=== PATIENT | male | born 1950 | race Caucasian/White ===

== ENCOUNTER 2016-04-07 11:38 | Day surgery (SDC) | payer MEDICARE, OTHER ==
[~2016-04-07 11:38] MED LIST: ALLO300T2 PO; AMLO10TA2 PO; ATOR40TA16 PO; CITA20TA4 PO; COMMODE 3-IN-11 MIS; DIAZ5TAB PO; DIOV160T6 PO; ENOX40P SQ; FLUT50SP EACH NARE; HYDR-3516 PO; HYDR12.57 PO; MAGN70CA PO; METO25TA3 PO; MISC-274; NIAS1000 PO; OMEGCAP PO; ONDA1TAB17 PO; PLAV75TA29 PO; PROT40TA PO; VITA100036 PO; ZANA4CAP PO; ZOLP10TA3 PO
[2016-04-07] MEDS ORDERED: DIOV160T6 PO (12:41)
[2016-04-07] MEDS ORDERED: ASPI1TAB69 PO (12:41)
[2016-04-07] MEDS ORDERED: INSULIN HUMAN REGULAR 1,000 UNITS/10 ML VIAL SQ PRN (13:00)
[2016-04-07] MEDS ORDERED: SODIUM CHLORID 0.9% 500 ML IV SCH (13:00)
[2016-04-07] MEDS ORDERED: METOPROLOL TARTRATE 25 MG TAB PO PRN (13:00)
[2016-04-07] MEDS ORDERED: LACTATED RINGER'S 1000 ML IV SCH (13:00)
--- NOTE | 2016-04-07 19:47 | CF ---
cc: CARLTON CEE M.D. DATE OF SURGERY: 04/07/2016 PROCEDURE: Transesophageal echocardiogram INDICATIONS: Recurrent TIA. History of PFO. CONSENT: Informed consent was obtained prior to the procedure. The risks of , bleeding, perforation, aspiration, foreseen and unforeseen complications reviewed. The patient fully appeared to understand the risks. PROCEDURAL STATEMENTS The patient was prepped and draped in the usual manner. The patient underwent anesthesia per the Anesthesia Department. A full LUIS was performed with bubble studies x4. FINDINGS There is a very small tunnel-like PFO noted with positive bubble studies times four suggesting a small PFO. The aortic valve was trileaflet. The mitral valve appeared to be normal. The tricuspid valve moved normally. LV function was normal. The aorta was visualized to 40 cm. CONCLUSION 1. Positive bubble studies x4 with agitated contrast solution suggesting a small PFO. 2. No significant mitral regurgitation, mild tricuspid regurgitation, normal LV function, normal function. Intact intraventricular septum and intra-apical septum. Carlton Cee MD, CP,[facility] /1:51 PM /7:34 PM AMALIA
--- NOTE | 2016-04-08 10:53 | EKG ---
Date Performed: 04/07/2016 Time Performed: 12:39:44 PTAGE: 65 years EKG: Sinus rhythm Normal ECG PREVIOUS TRACING : 11/20/2015 20.05 Compared to prior tracing no significant change DOCTOR: Hong Amos Interpretating Date/Time 04/08/2016 10:52:20
== END 2016-04-07 15:37 | disposition home or self-care (01) ==
LOC: HDOC 11:38 → HDIC 11:39 → HDOC 15:37
PROVIDERS: ATTEND Internal Medicine Cardiovascular Disease
DX: Q21.1 Atrial septal defect (principal); G45.9 Transient cerebral ischemic attack, unspecified; I10 Essential (primary) hypertension; E11.9 Type 2 diabetes mellitus without complications; J45.909 Unspecified asthma, uncomplicated; Z79.4 Long term (current) use of insulin
CPT/HCPCS: 93005; 93312; 93320; 93325

== ENCOUNTER → 2016-07-28 | Outpatient (CLI) | payer MEDICARE, OTHER ==
[~2016-07-28] MED LIST changes: +ASPI1TAB69 PO; -COMMODE 3-IN-11 MIS; -ENOX40P SQ; -HYDR-3516 PO; -MAGN70CA PO; -METO25TA3 PO; -MISC-274; -ZOLP10TA3 PO
[2016-07-28 07:13] LABS: AUTOMATED NEUTROPHIL # 3.8 TH/MM3 (1.8-7.7); BASOPHIL # 0.1 TH/MM3 (0-0.2); EOSINOPHIL # 0.1 TH/MM3 (0-0.4); EOSINOPHIL % 2.2 % (0.0-4.0); HEMATOCRIT 35.1 % (39.0-51.0); LYMPHOCYTE # 1.6 TH/MM3 (1.0-4.8); MEAN CELL VOLUME 73.9 FL (80.0-100.0); MEAN CORPUSCULAR HEMOGLOBIN 22.6 PG (27.0-34.0); MEAN CORPUSCULAR HGB CONC 30.5 % (32.0-36.0); MONO % 9.1 % (0.0-8.0); NEUT % 61.7 % (16.0-70.0); PLATELET COUNT 256 TH/MM3 (150-450); RED BLOOD COUNT 4.75 MIL/MM3 (4.50-5.90); RED CELL DISTRIBUTION WIDTH 17.2 % (11.6-17.2); WHITE BLOOD COUNT 6.1 TH/MM3 (4.0-11.0)
[2016-07-28 07:14] LABS: HEMO FLAGS AUTO DIFF
[2016-07-28 07:39] LABS: ALT (GPT) 34 U/L (12-78); ANION GAP 9 MEQ/L (5-15); AST (GOT) 20 U/L (15-37); BICARBONATE 25.4 MEQ/L (21.0-32.0); BLOOD UREA NITROGEN 20 MG/DL (7-18); CHLORIDE 103 MEQ/L (98-107); GLOMERULAR FILTRATION RATE 46 ML/MIN (>89); GLUCOSE,FASTING 112 MG/DL (74-99); POTASSIUM 3.9 MEQ/L (3.5-5.1); SODIUM (NA) 137 MEQ/L (136-145)
[2016-07-28 07:47] LABS: ALKALINE PHOSPHATASE 109 U/L (45-117); HDL CHOLESTEROL 50.1 MG/DL (40.0-60.0); LDL CHOLESTEROL 43 MG/DL (0-99); TOTAL BILIRUBIN ADULT 0.6 MG/DL (0.2-1.0)
[2016-07-28 07:59] LABS: OVALOCYTES 1+ (NORMAL); SCAN/DIFF AUTO DIFF CONFIRMED
[2016-07-28 08:03] LABS: HEMOGLOBIN A1a 1.2 %; HEMOGLOBIN A1b 2.2 %; HEMOGLOBIN Ao 82.7 %; HEMOGLOBIN LA1C 2.1 %; HEMOGLOBIN P3 4.3 %
== END ==
LOC: CLAB 06:42
PROVIDERS: ATTEND Radiology Radiation Oncology
DX: E83.42 Hypomagnesemia (principal); C61 Malignant neoplasm of prostate; N18.3 Chronic kidney disease, stage 3 (moderate)
CPT/HCPCS: 36415; 80053; 80061; 82652; 83036; 83735; 83970; 84153; 84443; 85025

== ENCOUNTER → 2016-09-23 | Outpatient (CLI) | payer MEDICARE, OTHER ==
[2016-09-23 07:04] LABS: AUTOMATED NEUTROPHIL # 3.4 TH/MM3 (1.8-7.7); BASOPHIL # 0.1 TH/MM3 (0-0.2); BASOPHIL % 1.1 % (0.0-2.0); EOSINOPHIL # 0.2 TH/MM3 (0-0.4); EOSINOPHIL % 3.6 % (0.0-4.0); HEMATOCRIT 37.3 % (39.0-51.0); HEMO FLAGS DIFF FINAL; LYMPH % 24.7 % (9.0-44.0); LYMPHOCYTE # 1.4 TH/MM3 (1.0-4.8); MEAN CELL VOLUME 76.7 FL (80.0-100.0); MEAN CORPUSCULAR HEMOGLOBIN 24.2 PG (27.0-34.0); MEAN CORPUSCULAR HGB CONC 31.6 % (32.0-36.0); MONO % 10.5 % (0.0-8.0); NEUT % 60.1 % (16.0-70.0); PLATELET COUNT 258 TH/MM3 (150-450); RED BLOOD COUNT 4.86 MIL/MM3 (4.50-5.90); RED CELL DISTRIBUTION WIDTH 23.8 % (11.6-17.2); RETIC % 2.5 % (0.4-3.0); REVIEW FLAG FINAL; WHITE BLOOD COUNT 5.6 TH/MM3 (4.0-11.0)
[2016-09-23 07:30] LABS: MAGNESIUM 2.1 MG/DL (1.5-2.5); TRANSFERRIN IRON PROFILE 321 MG/DL (200-360)
[2016-09-23 07:34] LABS: FERRITIN 18 NG/ML (26-388)
== END ==
LOC: CLAB 06:36
PROVIDERS: ATTEND Family Medicine
DX: D50.9 Iron deficiency anemia, unspecified (principal); E83.42 Hypomagnesemia; M10.9 Gout, unspecified
CPT/HCPCS: 36415; 82728; 83540; 83550; 83735; 84550; 85025; 85044

== ENCOUNTER → 2016-11-08 | Outpatient (CLI) | payer MEDICARE, OTHER ==
[2016-11-08 07:18] LABS: AUTOMATED NEUTROPHIL # 5.8 TH/MM3 (1.8-7.7); BASOPHIL # 0.1 TH/MM3 (0-0.2); BASOPHIL % 1.1 % (0.0-2.0); EOSINOPHIL # 0.3 TH/MM3 (0-0.4); EOSINOPHIL % 3.5 % (0.0-4.0); HEMATOCRIT 40.5 % (39.0-51.0); LYMPH % 23.2 % (9.0-44.0); LYMPHOCYTE # 2.1 TH/MM3 (1.0-4.8); MEAN CORPUSCULAR HEMOGLOBIN 27.6 PG (27.0-34.0); MEAN CORPUSCULAR HGB CONC 32.9 % (32.0-36.0); MONO % 7.2 % (0.0-8.0); PLATELET COUNT 235 TH/MM3 (150-450); RED BLOOD COUNT 4.82 MIL/MM3 (4.50-5.90); WHITE BLOOD COUNT 8.9 TH/MM3 (4.0-11.0)
[2016-11-08 07:23] LABS: HEMO FLAGS AUTO DIFF
[2016-11-08 07:39] LABS: FERRITIN 30 NG/ML (26-388); TRANSFERRIN IRON PROFILE 263 MG/DL (200-360)
[2016-11-08 09:33] LABS: SCAN/DIFF AUTO DIFF CONFIRMED
== END ==
LOC: CLAB 06:35
PROVIDERS: ATTEND Family Medicine
DX: D50.9 Iron deficiency anemia, unspecified (principal)
CPT/HCPCS: 36415; 82728; 83540; 83550; 85025

== ENCOUNTER → 2017-01-03 | Outpatient (CLI) | payer MEDICARE, OTHER ==
[2017-01-03 07:21] LABS: BASOPHIL # 0.1 TH/MM3 (0-0.2); BASOPHIL % 1.1 % (0.0-2.0); EOSINOPHIL # 0.2 TH/MM3 (0-0.4); EOSINOPHIL % 3.3 % (0.0-4.0); HEMATOCRIT 45.5 % (39.0-51.0); HEMO FLAGS DIFF FINAL; LYMPH % 26.9 % (9.0-44.0); LYMPHOCYTE # 1.4 TH/MM3 (1.0-4.8); MEAN CORPUSCULAR HEMOGLOBIN 28.7 PG (27.0-34.0); MEAN CORPUSCULAR HGB CONC 32.9 % (32.0-36.0); MONO % 11.3 % (0.0-8.0); NEUT % 57.4 % (16.0-70.0); PLATELET COUNT 223 TH/MM3 (150-450); RED BLOOD COUNT 5.23 MIL/MM3 (4.50-5.90); RED CELL DISTRIBUTION WIDTH 14.8 % (11.6-17.2); WHITE BLOOD COUNT 5.3 TH/MM3 (4.0-11.0)
[2017-01-03 07:47] LABS: ANION GAP 9 MEQ/L (5-15); BICARBONATE 24.3 MEQ/L (21.0-32.0); BLOOD UREA NITROGEN 22 MG/DL (7-18); CHLORIDE 103 MEQ/L (98-107); GLUCOSE,FASTING 165 MG/DL (74-99); POTASSIUM 3.9 MEQ/L (3.5-5.1); SODIUM (NA) 136 MEQ/L (136-145)
[2017-01-03 07:48] LABS: AST (GOT) 23 U/L (15-37); GLOMERULAR FILTRATION RATE 42 ML/MIN (>89); TOTAL BILIRUBIN ADULT 0.5 MG/DL (0.2-1.0)
[2017-01-03 07:51] LABS: MICRO ALBUMIN RANDOM URINE RAW 7.8 MG/L (0.0-30.0)
[2017-01-03 07:55] LABS: ALKALINE PHOSPHATASE 112 U/L (45-117); ALT (GPT) 54 U/L (12-78); FERRITIN 46 NG/ML (26-388)
[2017-01-03 10:19] LABS: HEMOGLOBIN A1a 1.2 %; HEMOGLOBIN A1b 1.2 %; HEMOGLOBIN Ao 79.2 %; HEMOGLOBIN F 1.5 %; HEMOGLOBIN LA1C 2.9 %; HEMOGLOBIN P3 4.9 %
== END ==
LOC: CLAB 06:44
PROVIDERS: ATTEND Family Medicine
DX: D50.0 Iron deficiency anemia secondary to blood loss (chronic) (principal); I10 Essential (primary) hypertension; E11.9 Type 2 diabetes mellitus without complications
CPT/HCPCS: 36415; 80053; 82043; 82728; 83036; 85025

== ENCOUNTER 2017-05-04 09:50 | Emergency (ER) | payer MEDICARE, OTHER ==
[~2017-05-04] VITALS: Ht 180.3 cm; Wt 104.5 kg
[~2017-05-04 09:50] MED LIST changes: +CHOL10008 PO; -ONDA1TAB17 PO; +ONDA8TAB7 PO; -VITA100036 PO
[2017-05-04 09:51] VITALS: BP 146/82; PULSE 110; RESP 18; TEMP 98.2; O2SAT 97
[2017-05-04] MEDS ORDERED: AMBI10TA PO (10:24)
[2017-05-04] MEDS ORDERED: ASPI81CH6 CHEW (10:24)
[2017-05-04] MEDS ORDERED: SITA50 PO (10:28)
[2017-05-04] MEDS ORDERED: SODIUM CHLOR 0.9% 1000 ML INJ 1,000 ML IV ONE ×2 (11:15→12:30)
[2017-05-04 11:34] LABS: AUTOMATED NEUTROPHIL # 3.6 TH/MM3 (1.8-7.7); BASOPHIL # 0.1 TH/MM3 (0-0.2); EOSINOPHIL # 0.1 TH/MM3 (0-0.4); EOSINOPHIL % 1.1 % (0.0-4.0); HEMATOCRIT 44.5 % (39.0-51.0); HEMOGLOBIN 14.4 GM/DL (13.0-17.0); LYMPH % 24.2 % (9.0-44.0); LYMPHOCYTE # 1.4 TH/MM3 (1.0-4.8); MEAN CELL VOLUME 90.6 FL (80.0-100.0); MEAN CORPUSCULAR HEMOGLOBIN 29.3 PG (27.0-34.0); MEAN CORPUSCULAR HGB CONC 32.4 % (32.0-36.0); MEAN PLATELET VOLUME 8.8 FL (7.0-11.0); MONO % 9.8 % (0.0-8.0); MONOCYTE # 0.6 TH/MM3 (0-0.9); NEUT % 63.9 % (16.0-70.0); PLATELET COUNT 277 TH/MM3 (150-450); RED BLOOD COUNT 4.91 MIL/MM3 (4.50-5.90); RED CELL DISTRIBUTION WIDTH 14.8 % (11.6-17.2); WHITE BLOOD COUNT 5.7 TH/MM3 (4.0-11.0)
[2017-05-04 11:55] LABS: ALBUMIN 3.2 GM/DL (3.4-5.0); BICARBONATE 20.4 MEQ/L (21.0-32.0); CALCIUM 9.3 MG/DL (8.5-10.1); CREATININE 1.61 MG/DL (0.60-1.30); DIRECT BILIRUBIN ADULT 0.1 MG/DL (0.0-0.2)
[2017-05-04 12:02] LABS: INDIRECT BILIRUBIN 0.5 MG/DL (0.0-0.8); TOTAL BILIRUBIN ADULT 0.6 MG/DL (0.2-1.0); TOTAL PROTEIN 6.9 GM/DL (6.4-8.2)
--- NOTE | 2017-05-04 12:16 | RADRPT ---
EXAM DATE/TIME: 05/04/2017 11:34 [place] COMPARISON: CHEST SINGLE AP, November 20, 2015, 20:26. INDICATIONS : Chest pain, Dizziness and weakness. MEDICAL HISTORY : Hypertension. Diabetes mellitus type II. Carcinoma, prostatic. TIA. CVA. SURGICAL HISTORY : Cardiac cath. ENCOUNTER: Initial ACUITY: 2 days PAIN SCORE: 6/10 LOCATION: Bilateral chest FINDINGS: A single view of the chest demonstrates the lungs to be symmetrically aerated without evidence of mas s, infiltrate or effusion. The cardiomediastinal contours are unremarkable. Stable degenerative workman ges in both shoulders.. CONCLUSION: The lungs are clear. Eric Raza MD on May 04, 2017 at 12:13 Board Certified Radiologist. This report was verified electronically.
[2017-05-04] MEDS ORDERED: INSULIN HUMAN REGULAR 1,000 UNITS/10 ML VIAL IV PUSH ONE (12:30)
[2017-05-04 12:48] LABS: BILIRUBIN, URINE NEG (NEG); BLOOD, URINE NEG (NEG); GLUCOSE,URINE 1000 mg/dL (NEG); KETONE, URINE 80 mg/dL (NEG); MUCUS URINE FEW /lpf (OCC); NITRITE,URINE NEG (NEG); URINE COLOR LIGHT-YELLOW (YELLW/STRAW); URINE LEUKOCYTE ESTERASE NEG (NEG)
[2017-05-04 14:07] VITALS: BP 96/67; PULSE 82; RESP 20; O2SAT 97
[2017-05-04 14:55] LABS: BICARBONATE 21.8 MEQ/L (21.0-32.0); CALCIUM 8.3 MG/DL (8.5-10.1); CREATININE 1.32 MG/DL (0.60-1.30)
--- NOTE | 2017-05-04 15:53 | PD ---
HPI Chief Complaint: Diabetic Time Seen by Provider: 10:44 Travel History International Travel<30 days: No Contact w/Intl Traveler<30days: No Traveled to known affect area: No History of Present Illness HPI Patient is a 66-year-old male who comes in due to high blood sugar. He has history of diabetes, but decided to stop taking his diabetes medication 3 months ago. He had blood work done and was called Tuesday because his sugar was found to be 700. He says that he started to take his Januvia at this time, and is noticed that his blood sugar has improved. His however, convinced him that he needed to come in to get checked out. He reports some nausea, increased thirst and increased urination. He has not had any chest pain or abdominal pain. Severity is moderate. PFSH Past Medical History Hx Anticoagulant Therapy: Yes (PLAVIX, ASA) Arthritis: Yes Asthma: No Anxiety: Yes Depression: Yes Heart Rhythm Problems: No Cancer: Yes (SKIN CANCER RIGHT SHOULDER AND SCALP 1997 REMOVED/PROSTATE 2014) Cardiac Catheterization: Yes Cardiovascular Problems: Yes (PATENT FOREAMEN OVALE, HEART CATH IN 1985) High Cholesterol: Yes Chest Pain: Yes Congestive Heart Failure: No COPD: No Cerebrovascular Accident: Yes Diabetes: Yes Patient Takes Glucophage: No (januvia) Diminished Hearing: Yes Endocrine: No Gastrointestinal Disorders: Yes (gi bleed with colonscopy 2015) GERD: Yes Genitourinary: Yes Hepatitis: No Hypertension: Yes Immune Disorder: No Kidney Stones: Yes Medical other: Yes (TIA) Musculoskeletal: Yes (arthritis all joints) Neurologic: Yes (tia x2, closed head injury 2015 , difficulty with balance, vertigo) Psychiatric: Yes Reproductive: No Respiratory: No Immunizations Current: Yes Migraines: Yes Radiation Therapy: Yes (PROSTATE CANCER) Seizures: No Sleep Apnea: No Thyroid Disease: No Triglycerides - High: Yes Ulcer: No Past Surgical History Abdominal Surgery: Yes (BILATERAL HERNIA REPAIR 1956, LAP FABIOLA 1997) AICD: No Body Medical Devices: current admission, left knee Cardiac Surgery: Yes (cardiac cath 1985, pfo occluder ([facility])) Cholecystectomy: Yes (1997) Ear Surgery: No Endocrine Surgery: No Eye Surgery: No Genitourinary Surgery: Yes (BASKET KIDNEY STONE REMOVAL 1998) Gynecologic Surgery: No Joint Replacement: Yes (BILAT. HIPS) Oral Surgery: Yes (T AND A 1954) Pacemaker: No Prostatectomy: Yes Thoracic Surgery: Yes (L PNEUMOTHORAX 1977) Tonsillectomy: Yes (1953) Other Surgery: Yes (1970 SEPTOPLASTY, R SHOULDER I&D FOR CALCIFICATION) Social History Alcohol Use: No Tobacco Use: No Substance Use: No Allergies-Medications (Allergen,Severity, Reaction): Coded Allergies: Iodinated Contrast- Oral and IV Dye (Verified Allergy, Severe, 05/04/17) NSAIDS (Non-Steroidal Anti-Inflamma (Verified Allergy, Severe, 05/04/17) diatrizoate meglumine (Unverified Allergy, Severe, "ANAPHYLAXIS", 11/09/16) diclofenac (Unverified Allergy, Severe, ACUTE RENAL FAILURE, 11/09/16) etodolac (Unverified Allergy, Severe, ACUTE RENAL FAILURE, 11/09/16) flurbiprofen (Unverified Allergy, Severe, ACUTE RENAL FAILURE, 11/09/16) gadobenic acid (Unverified Allergy, Severe, "ANAPHYLAXIS", 11/09/16) gadodiamide (Unverified Allergy, Severe, "ANAPHYLAXIS", 11/09/16) gadoteridol (Unverified Allergy, Severe, "ANAPHYLAXIS", 11/09/16) ibuprofen (Unverified Allergy, Severe, ACUTE RENAL FAILURE, 11/09/16) NO NSAIDS indomethacin (Unverified Allergy, Severe, ACUTE RENAL FAILURE, 11/09/16) iodixanol (Unverified Allergy, Severe, "ANAPHYLAXIS", 11/09/16) iohexol (Unverified Allergy, Severe, "ANAPHYLAXIS", 11/09/16) ketoprofen (Unverified Allergy, Severe, ACUTE RENAL FAILURE, 11/09/16) ketorolac (Unverified Allergy, Severe, ACUTE RENAL FAILURE, 11/09/16) naproxen (Unverified Allergy, Severe, ACUTE RENAL FAILURE, 11/09/16) oxaprozin (Unverified Allergy, Severe, ACUTE RENAL FAILURE, 11/09/16) promethazine (Unverified Allergy, Severe, ALTERED MENTAL STATUS, 11/09/16) ALLERGIC TO IV ONLY. SEVERE ANXIETY bee venom protein (honey bee) (Unverified Allergy, Mild, ITCHING/SWELLING , 11/09/16) *MDRO Multi-Drug Resistant Organism (Unverified Allergy, Unknown, 02/03/16) Reported Meds & Prescriptions Reported Meds & Active Scripts Active Reported Januvia (Sitagliptin Phosphate) 50 Mg Tab 50 Mg PO DAILY Aspirin Low Dose (Aspirin) 81 Mg Chew 162 Mg CHEW DAILY Ambien (Zolpidem Tartrate) 10 Mg Tab 10 Mg PO HS PRN Vitamin D3 (Cholecalciferol) 1,000 Unit Cap 1,000 Units PO DAILY Fluticasone Nasal [place] 50 Mcg/Act Naspr 50 Mcg EACH NARE BID 50 mcg/spray Zanaflex (Tizanidine HCl) 4 Mg Cap 4 Mg PO TID PRN [place]-3 Fish Oil/Vitamin (Fish Oil-Cholecalciferol) 1,000-1,000 Mg Cap 1 Cap PO BID Ondansetron (Ondansetron HCl) 8 Mg Tab 8 Mg PO TID PRN Diazepam 5 Mg Tab 5 Mg PO BID PRN Atorvastatin (Atorvastatin Calcium) 40 Mg Tab 40 Mg PO HS Plavix (Clopidogrel Bisulfate) 75 Mg Tab 75 Mg PO DAILY Restart when okay by orthopedic surgery Amlodipine (Amlodipine Besylate) 10 Mg Tab 10 Mg PO DAILY Protonix (Pantoprazole Sodium) 40 Mg Tab 40 Mg PO DAILY Diovan (Valsartan) 160 Mg Tab 160 Mg PO BID Allopurinol 300 Mg Tab 300 Mg PO DAILY Review of Systems Except as stated in HPI: all other systems reviewed are Neg General / Constitutional: No: Fever, Chills HENT: No: Headaches, Lightheadedness Cardiovascular: No: Chest Pain or Discomfort Respiratory: No: Shortness of Breath Gastrointestinal: Positive: Nausea, No: Vomiting, Abdominal Pain Genitourinary: Positive: Frequency Musculoskeletal: No: Myalgias Skin: No Rash, No Change in Pigmentation Endocrine: Positive: Polyuria, Polydipsia Physical Exam Narrative GENERAL: Awake and alert, in no acute distress. SKIN: Focused skin assessment warm/dry. No wounds or signs of infection. HEAD: Atraumatic. Normocephalic. EYES: Pupils equal and round. No scleral icterus. ENT: Mucous membranes pink and moist. NECK: Trachea midline. No JVD. CARDIOVASCULAR: Regular rate and rhythm. No murmur appreciated. RESPIRATORY: No accessory muscle use. Clear to auscultation. Breath sounds equal bilaterally. GASTROINTESTINAL: Abdomen soft, non-tender, nondistended. MUSCULOSKELETAL: No obvious deformities. No clubbing. No cyanosis. No edema. NEUROLOGICAL: Awake and alert. No obvious cranial nerve deficits. Motor grossly within normal limits. Normal speech. PSYCHIATRIC: Appropriate mood and affect; insight and judgment normal. Data Data Last Documented VS Vital Signs Date Time Temp Pulse Resp B/P (MAP) Pulse Ox O2 Delivery O2 Flow Rate FiO2 05/04/17 14:07 82 20 96/67 (77) 97 Room Air 05/04/17 09:51 98.2 Orders Orders Iv Access Insert/Monitor (05/04/17 11:01) Complete Blood Count With Diff (05/04/17 11:01) Basic Metabolic Panel (Bmp) (05/04/17 11:01) Hepatic Functional Panel (05/04/17 11:01) Beta Hydroxybutyrate (Acetone) (05/04/17 11:01) Urinalysis - C+S If Indicated (05/04/17 11:01) Sodium Chlor 0.9% 1000 Ml Inj (Ns 1000 M (05/04/17 11:15) Chest, Single Ap (05/04/17 ) Blood Gas Venous (Vbg) (05/04/17 12:24) Sodium Chlor 0.9% 1000 Ml Inj (Ns 1000 M (05/04/17 12:30) Insulin Human Regular Inj (Novolin R Inj (05/04/17 12:30) Basic Metabolic Panel (Bmp) (05/04/17 13:49) Labs Laboratory Tests Test 05/04/17 11:15 05/04/17 12:25 05/04/17 12:40 05/04/17 14:04 White Blood Count 5.7 TH/MM3 Red Blood Count 4.91 MIL/MM3 Hemoglobin 14.4 GM/DL Hematocrit 44.5 % Mean Corpuscular Volume 90.6 FL Mean Corpuscular Hemoglobin 29.3 PG Mean Corpuscular Hemoglobin Concent 32.4 % Red Cell Distribution Width 14.8 % Platelet Count 277 TH/MM3 Mean Platelet Volume 8.8 FL Neutrophils (%) (Auto) 63.9 % Lymphocytes (%) (Auto) 24.2 % Monocytes (%) (Auto) 9.8 % Eosinophils (%) (Auto) 1.1 % Basophils (%) (Auto) 1.0 % Neutrophils # (Auto) 3.6 TH/MM3 Lymphocytes # (Auto) 1.4 TH/MM3 Monocytes # (Auto) 0.6 TH/MM3 Eosinophils # (Auto) 0.1 TH/MM3 Basophils # (Auto) 0.1 TH/MM3 CBC Comment DIFF FINAL Differential Comment Blood Urea Nitrogen 26 MG/DL 23 MG/DL Creatinine 1.61 MG/DL 1.32 MG/DL Random Glucose 482 MG/DL 325 MG/DL Total Protein 6.9 GM/DL Albumin 3.2 GM/DL Calcium Level 9.3 MG/DL 8.3 MG/DL Alkaline Phosphatase 131 U/L Aspartate Amino Transf (AST/SGOT) 19 U/L Alanine Aminotransferase (ALT/SGPT) 24 U/L Total Bilirubin 0.6 MG/DL Direct Bilirubin 0.1 MG/DL Sodium Level 128 MEQ/L 133 MEQ/L Potassium Level 5.2 MEQ/L 4.1 MEQ/L Chloride Level 91 MEQ/L 99 MEQ/L Carbon Dioxide Level 20.4 MEQ/L 21.8 MEQ/L Anion Gap 17 MEQ/L 12 MEQ/L Estimat Glomerular Filtration Rate 43 ML/MIN 54 ML/MIN Indirect Bilirubin 0.5 MG/DL B-Hydroxybutyrate 6.93 MMOL/L Urine Color LIGHT-YELLOW Urine Turbidity CLEAR Urine pH 5.0 Urine Specific [place] 1.022 Urine Protein NEG mg/dL Urine Glucose (UA) 1000 mg/dL Urine Ketones 80 mg/dL Urine Occult Blood NEG Urine Nitrite NEG Urine Bilirubin NEG Urine Urobilinogen LESS THAN 2.0 MG/DL Urine Leukocyte Esterase NEG Urine RBC 1 /hpf Urine WBC LESS THAN 1 /hpf Urine Mucus FEW /lpf Microscopic Urinalysis Comment CULT NOT INDICATED Blood Gas Puncture Site CL Blood Gas Patient Temperature 98.6 Venous Blood pH 7.34 Venous Blood Partial Pressure CO2 37 mmHg Venous Blood Partial Pressure O2 27 mmHg Venous Blood HCO3 19 mmol/L Venous Blood Oxygen Saturation 57 % Venous Blood Oxygen Content 10.5 Vol % Venous Blood Base Excess -5.4 mmol/L Oxygen Delivery Device RA MDM Medical Decision Making Medical Screen Exam Complete: Yes Emergency Medical Condition: Yes Medical Record Reviewed: Yes Differential Diagnosis HHS versus DKA versus hyperglycemia versus dehydration versus electrolyte abnormality Narrative Course Patient is a 66-year-old male who comes in complaining of elevated blood sugar. Exam shows no acute abnormalities. IV established, labs sent. Labs show a blood sugar of 482. Creatinine is 1.61, anion gap is 17. Patient given IV fluids and 5 units of insulin. Repeat BMP shows a blood sugar of 325, normal anion gap of 12 and improved creatinine to 1.32. Patient advised he needs to drink plenty of water. Advised to continue his diabetes medication and follow-up with his primary care doctor. He and his are agreeable to this plan. Advised to return anytime for any worsening symptoms. Diagnosis Primary Impression: Hyperglycemia Patient Instructions: Diabetic Hyperglycemia (ED), General Instructions Additional Instructions: Drink plenty of water. Take your diabetes medication. Follow up with your doctor. Return to the ED as needed for any worsening symptoms. Disposition: 01 DISCHARGE HOME Condition: Stable Laila Garcia MD May 04, 2017 15:53
[2017-05-04 16:17] VITALS: BP 107/68
== END 2017-05-04 16:19 | disposition home or self-care (01) ==
LOC: NEPE 09:50
DX: E11.65 Type 2 diabetes mellitus with hyperglycemia (principal); E78.00 Pure hypercholesterolemia, unspecified; F32.9 Major depressive disorder, single episode, unspecified; M19.90 Unspecified osteoarthritis, unspecified site; I10 Essential (primary) hypertension; Z91.14 Patient's other noncompliance with medication regimen; Z85.828 Personal history of other malignant neoplasm of skin; Z86.73 Personal history of transient ischemic attack (TIA), and cerebral infarction without residual deficits
CPT/HCPCS: 71045; 80048; 80076; 81001; 82010; 82805; 85025; 96361; 96374; 99284; J1815; J7030

== ENCOUNTER 2017-07-20 17:15 | Inpatient (IN) | payer MEDICARE, OTHER ==
[~2017-07-20] VITALS: Ht 180.3 cm; Wt 105.9 kg
[2017-07-20 02:00] VITALS: BP 121/86; PULSE 89; RESP 18; TEMP 97.6; O2SAT 96
[~2017-07-20 17:15] MED LIST changes: +AMBI10TA PO; -ASPI1TAB69 PO; +ASPI81CH6 CHEW; -CITA20TA4 PO; -HYDR12.57 PO; -NIAS1000 PO; +SITA50 PO
[2017-07-20 17:44] VITALS: BP 87/54; PULSE 122; RESP 22; O2SAT 95
[2017-07-20 17:56] VITALS: BP 107/65; PULSE 110; RESP 17; O2SAT 95
[2017-07-20] MEDS ORDERED: HYDR12.56 PO (18:05)
[2017-07-20] MEDS ORDERED: LANTUS2P SQ (18:05)
[2017-07-20] MEDS ORDERED: TRIA0.022 TOPICAL (18:05)
[2017-07-20] MEDS ORDERED: NOVOINJ3 SQ (18:05)
[2017-07-20] MEDS ORDERED: CLON0.5T PO (18:05)
[2017-07-20] MEDS ORDERED: HYDR-3366 PO (18:05)
[2017-07-20] MEDS ORDERED: SODIUM CHLORID 0.9% 500 ML INJ 500 ML IV ONE (18:30)
[2017-07-20] MEDS ORDERED: MORPHINE SULFATE 4 MG/ML INJ IV PUSH ONE (18:30)
[2017-07-20] MEDS ORDERED: ONDANSETRON HCL 4 MG/2 ML VIAL IVP ONE (18:30)
--- NOTE | 2017-07-20 18:40 | PD ---
HPI Chief Complaint: GI Complaint Time Seen by Provider: 18:18 Travel History International Travel<30 days: No Contact w/Intl Traveler<30days: No Traveled to known affect area: No History of Present Illness HPI 66-year-old male that presents to the ED for evaluation of right lower quadrant pain that started today. Per patient the pain has been severe today. Per patient he woke him up. Per patient has been having dry heaves for about a week. He states that he still has his appendix. Per patient he has pain in his right lower quadrant and points to the right lower quadrant surgical pain. Per patient about 2 years ago he had kidney stones and sent to had to be taken out by urologist. Per patient he does not feel similar as this pain is more lower than the pain he had before. Per patient he did not took anything for this. Per patient the pain is 10 out of 10. He denies any urinary or bowel movement issues. No recent surgeries. Has no general surgeon. States having dry heaving but no actual vomiting. Has multiple allergies to different medications. Denies any chest pain or shortness of breath. No falls or injuries. He does have a history of gallbladder removal as well as bilateral inguinal hernia repairs when he was younger. PFSH Past Medical History Hx Anticoagulant Therapy: Yes (PLAVIX, ASA) Arthritis: Yes Asthma: No Anxiety: Yes Depression: Yes Heart Rhythm Problems: No Cancer: Yes (SKIN CANCER RIGHT SHOULDER AND SCALP 1997 REMOVED/PROSTATE 2014) Cardiac Catheterization: Yes Cardiovascular Problems: Yes (PATENT FOREAMEN OVALE, HEART CATH IN 1985) High Cholesterol: Yes Chest Pain: Yes Congestive Heart Failure: No COPD: No Cerebrovascular Accident: Yes Diabetes: Yes Patient Takes Glucophage: No Diminished Hearing: Yes Endocrine: No Gastrointestinal Disorders: Yes (gi bleed with colonscopy 2015) GERD: Yes Genitourinary: Yes Hepatitis: No Hypertension: Yes Immune Disorder: No Kidney Stones: Yes Medical other: Yes (TIA) Musculoskeletal: Yes (arthritis all joints) Neurologic: Yes (tia x2, closed head injury 2016 , difficulty with balance, vertigo) Psychiatric: Yes Reproductive: No Respiratory: No Immunizations Current: Yes Migraines: Yes Radiation Therapy: Yes (PROSTATE CANCER) Seizures: No Sleep Apnea: No Thyroid Disease: No Triglycerides - High: Yes Ulcer: No Past Surgical History Abdominal Surgery: Yes (BILATERAL HERNIA REPAIR 1956, LAP FABIOLA 1997) AICD: No Body Medical Devices: current admission, left knee Cardiac Surgery: Yes (cardiac cath 1985, pfo occluder ([facility])) Cholecystectomy: Yes (1997) Ear Surgery: No Endocrine Surgery: No Eye Surgery: No Genitourinary Surgery: Yes (BASKET KIDNEY STONE REMOVAL 1998) Gynecologic Surgery: No Joint Replacement: Yes (BILAT. HIPS) Oral Surgery: Yes (T AND A 1954) Pacemaker: No Prostatectomy: Yes Thoracic Surgery: Yes (L PNEUMOTHORAX 1977) Tonsillectomy: Yes (1953) Other Surgery: Yes (1970 SEPTOPLASTY, R SHOULDER I&D FOR CALCIFICATION) Social History Alcohol Use: No Tobacco Use: No Substance Use: No Allergies-Medications (Allergen,Severity, Reaction): Coded Allergies: Iodinated Contrast- Oral and IV Dye (Verified Allergy, Severe, 07/20/17) NSAIDS (Non-Steroidal Anti-Inflamma (Verified Allergy, Severe, 07/20/17) diatrizoate meglumine (Unverified Allergy, Severe, "ANAPHYLAXIS", 07/20/17) diclofenac (Unverified Allergy, Severe, ACUTE RENAL FAILURE, 07/20/17) etodolac (Unverified Allergy, Severe, ACUTE RENAL FAILURE, 07/20/17) flurbiprofen (Unverified Allergy, Severe, ACUTE RENAL FAILURE, 07/20/17) gadobenic acid (Unverified Allergy, Severe, "ANAPHYLAXIS", 07/20/17) gadodiamide (Unverified Allergy, Severe, "ANAPHYLAXIS", 07/20/17) gadoteridol (Unverified Allergy, Severe, "ANAPHYLAXIS", 07/20/17) ibuprofen (Unverified Allergy, Severe, ACUTE RENAL FAILURE, 07/20/17) NO NSAIDS indomethacin (Unverified Allergy, Severe, ACUTE RENAL FAILURE, 07/20/17) iodixanol (Unverified Allergy, Severe, "ANAPHYLAXIS", 07/20/17) iohexol (Unverified Allergy, Severe, "ANAPHYLAXIS", 07/20/17) ketoprofen (Unverified Allergy, Severe, ACUTE RENAL FAILURE, 07/20/17) ketorolac (Unverified Allergy, Severe, ACUTE RENAL FAILURE, 07/20/17) naproxen (Unverified Allergy, Severe, ACUTE RENAL FAILURE, 07/20/17) oxaprozin (Unverified Allergy, Severe, ACUTE RENAL FAILURE, 07/20/17) promethazine (Unverified Allergy, Severe, ALTERED MENTAL STATUS, 07/20/17) ALLERGIC TO IV ONLY. SEVERE ANXIETY bee venom protein (honey bee) (Unverified Allergy, Mild, ITCHING/SWELLING , 07/20/17) *MDRO Multi-Drug Resistant Organism (Unverified Allergy, Unknown, 07/20/17) Reported Meds & Prescriptions Reported Meds & Active Scripts Active Reported Triamcinolone Topical 0.025 % Oint 1 Applic TOPICAL BID [place] (Hydrocodone-Acetaminophen) 10-325 Mg Tab 1 Tab PO TID PRN Clonazepam 0.5 Mg Tab 0.5 Mg PO TID Hydrochlorothiazide 12.5 Mg Tab 12.5 Mg PO DAILY Lantus Inj (Insulin Glargine) 1,000 Unit/10 Ml Vial 10 Units SQ HS Novolog Flexpen Inj (Insulin Aspart) 300 Unit/3 Ml Pen 1 Units SQ Aspirin Low Dose (Aspirin) 81 Mg Chew 162 Mg CHEW DAILY Ambien (Zolpidem Tartrate) 10 Mg Tab 10 Mg PO HS PRN Vitamin D3 (Cholecalciferol) 1,000 Unit Cap 1,000 Units PO DAILY Fluticasone Nasal [place] 50 Mcg/Act Naspr 50 Mcg EACH NARE BID 50 mcg/spray Zanaflex (Tizanidine HCl) 4 Mg Cap 4 Mg PO TID PRN [place]-3 Fish Oil/Vitamin (Fish Oil-Cholecalciferol) 1,000-1,000 Mg Cap 1 Cap PO BID Ondansetron (Ondansetron HCl) 8 Mg Tab 8 Mg PO TID PRN Atorvastatin (Atorvastatin Calcium) 40 Mg Tab 40 Mg PO HS Plavix (Clopidogrel Bisulfate) 75 Mg Tab 75 Mg PO DAILY Restart when okay by orthopedic surgery Amlodipine (Amlodipine Besylate) 10 Mg Tab 10 Mg PO DAILY Protonix (Pantoprazole Sodium) 40 Mg Tab 40 Mg PO DAILY Diovan (Valsartan) 160 Mg Tab 160 Mg PO BID Allopurinol 300 Mg Tab 300 Mg PO DAILY Review of Systems Except as stated in HPI: all other systems reviewed are Neg Physical Exam Narrative GENERAL: SKIN: Warm and dry. HEAD: Atraumatic. Normocephalic. EYES: Pupils equal and round. No scleral icterus. No injection or drainage. ENT: No nasal bleeding or discharge. Mucous membranes pink and moist. Tongue is midline. No uvula deviation. NECK: Trachea midline. No JVD. CARDIOVASCULAR: Regular rate and rhythm. No murmurs, S3, S4. RESPIRATORY: No accessory muscle use. Clear to auscultation. Breath sounds equal bilaterally. GASTROINTESTINAL: Abdomen soft, non-tender, nondistended. Hepatic and splenic margins not palpable. MUSCULOSKELETAL: Extremities without clubbing, cyanosis, or edema. No obvious deformities. Full range of motion of the upper and lower extremities bilaterally. 2+ pulses bilaterally. NEUROLOGICAL: Awake and alert. No obvious cranial nerve deficits. Motor grossly within normal limits. Five out of 5 muscle strength in the arms and legs. Normal speech. PSYCHIATRIC: Appropriate mood and affect; insight and judgment normal. Data Data Last Documented VS Vital Signs Date Time Temp Pulse Resp B/P (MAP) Pulse Ox O2 Delivery O2 Flow Rate FiO2 07/20/17 19:13 105 20 112/66 (81) 92 Room Air Orders Orders Complete Blood Count With Diff (07/20/17 18:26) Comprehensive Metabolic Panel (07/20/17 18:26) Lipase (07/20/17 18:26) Lactic Acid (07/20/17 18:26) Prothrombin Time / Inr (Pt) (07/20/17 18:) Act Partial Throm Time (Ptt) (07/20/17 18:) Urinalysis - C+S If Indicated (07/20/17 18:26) Ct Abd/Pel W/O Iv Contrast (07/20/17 18:26) Iv Access Insert/Monitor (07/20/17 18:26) Ecg Monitoring (07/20/17 18:26) Oximetry (07/20/17 18:26) NPO (07/20/17 18:26) Morphine Inj (Morphine Inj) (07/20/17 18:30) Ondansetron Inj (Zofran Inj) (07/20/17 18:30) Sodium Chlorid 0.9% 500 Ml Inj (Ns 500 M (07/20/17 18:30) Electrocardiogram (07/20/17 ) Insulin Human Regular Inj (Novolin R Inj (07/20/17 19:15) C-Reactive Protein (Crp) (07/20/17 18:26) Ciprofloxacin 400 Mg Premix (Cipro 400 M (07/20/17 20:15) Metronidazole 500 Mg Inj (Flagyl 500 Mg (07/20/17 20:15) Admit Order (Ed Use Only) (07/20/17 20:40) Labs Laboratory Tests Test 07/20/17 18:55 07/20/17 19:03 Blood Urea Nitrogen 43 MG/DL Creatinine 2.35 MG/DL Random Glucose 640 MG/DL Total Protein 8.0 GM/DL Albumin 3.8 GM/DL Calcium Level 9.9 MG/DL Alkaline Phosphatase 124 U/L Aspartate Amino Transf (AST/SGOT) 15 U/L Alanine Aminotransferase (ALT/SGPT) 25 U/L Total Bilirubin 0.8 MG/DL Sodium Level 125 MEQ/L Potassium Level 4.9 MEQ/L Chloride Level 90 MEQ/L Carbon Dioxide Level 21.2 MEQ/L Anion Gap 14 MEQ/L Estimat Glomerular Filtration Rate 28 ML/MIN C-Reactive Protein 1.60 MG/DL Lipase 157 U/L White Blood Count 10.2 TH/MM3 Red Blood Count 5.48 MIL/MM3 Hemoglobin 15.6 GM/DL Hematocrit 47.8 % Mean Corpuscular Volume 87.1 FL Mean Corpuscular Hemoglobin 28.4 PG Mean Corpuscular Hemoglobin Concent 32.6 % Red Cell Distribution Width 14.7 % Platelet Count 301 TH/MM3 Mean Platelet Volume 8.5 FL Neutrophils (%) (Auto) 78.0 % Lymphocytes (%) (Auto) 13.3 % Monocytes (%) (Auto) 6.9 % Eosinophils (%) (Auto) 1.1 % Basophils (%) (Auto) 0.7 % Neutrophils # (Auto) 8.0 TH/MM3 Lymphocytes # (Auto) 1.4 TH/MM3 Monocytes # (Auto) 0.7 TH/MM3 Eosinophils # (Auto) 0.1 TH/MM3 Basophils # (Auto) 0.1 TH/MM3 CBC Comment DIFF FINAL Differential Comment Prothrombin Time 10.2 SEC Prothromb Time International Ratio 1.0 RATIO Activated Partial Thromboplast Time 24.1 SEC Lactic Acid Level 2.0 mmol/L MDM Medical Decision Making Medical Screen Exam Complete: Yes Emergency Medical Condition: Yes Medical Record Reviewed: Yes Interpretation(s) CBC & BMP Diagram 07/20/17 18:55 Total Protein 8.0, Albumin 3.8, Calcium Level 9.9, Alkaline Phosphatase 124 H, Aspartate Amino Transf (AST/SGOT) 15, Alanine Aminotransferase (ALT/SGPT) 25, Total Bilirubin 0.8 07/20/17 19:03 Last Impressions Abdomen/Pelvis CT 07/20/17 1826 Signed Impressions: Service Date/Time: Thursday, July 20, 2017 19:39 - CONCLUSION: 1. Mild, uncomplicated acute diverticulitis of the mid to distal sigmoid colon. 2. Normal appendix. Diego Arceo MD Differential Diagnosis Abdominal pain versus appendicitis versus kidney stone versus acute abdomen versus gastroenteritis Narrative Course 66-year-old male that presents to the ED for evaluation of right lower quadrant pain. Patient was properly examined and was found to have signs and symptoms deafly concerning for appendicitis versus kidney stone. Labs and imaging order. Patient was given IV pain medications. Labs and imaging showed diverticulitis as well as acute kidney injury. Case discussed with the patient who is in agreement with plan. Patient will be admitted for further evaluation of the kidney injury. Likely from the hydration. Patient will start IV antibiotics. Case discussed with Dr. Carson who agrees to admission. Diagnosis Primary Impression: Acute kidney injury Additional Impressions: Diverticulitis Diabetes Qualified Codes: E11.9 - Type 2 diabetes mellitus without complications; Z79.4 - french folder (current) use of insulin Admitting Information Admitting Physician Requests: Admit Stan Yang Jul 20, 2017 18:40
[2017-07-20 19:13] VITALS: BP 112/66; PULSE 105; RESP 20; O2SAT 92
[2017-07-20] MEDS ORDERED: INSULIN HUMAN REGULAR 1,000 UNITS/10 ML VIAL SQ ONE ×2 (19:15→21:15)
[2017-07-20 19:37] LABS: BASOPHIL # 0.1 TH/MM3 (0-0.2); BASOPHIL % 0.7 % (0.0-2.0); EOSINOPHIL # 0.1 TH/MM3 (0-0.4); EOSINOPHIL % 1.1 % (0.0-4.0); HEMATOCRIT 47.8 % (39.0-51.0); HEMOGLOBIN 15.6 GM/DL (13.0-17.0); LYMPH % 13.3 % (9.0-44.0); LYMPHOCYTE # 1.4 TH/MM3 (1.0-4.8); MEAN CELL VOLUME 87.1 FL (80.0-100.0); MEAN CORPUSCULAR HEMOGLOBIN 28.4 PG (27.0-34.0); MEAN CORPUSCULAR HGB CONC 32.6 % (32.0-36.0); MEAN PLATELET VOLUME 8.5 FL (7.0-11.0); MONO % 6.9 % (0.0-8.0); MONOCYTE # 0.7 TH/MM3 (0-0.9); PLATELET COUNT 301 TH/MM3 (150-450); RED BLOOD COUNT 5.48 MIL/MM3 (4.50-5.90); RED CELL DISTRIBUTION WIDTH 14.7 % (11.6-17.2); WHITE BLOOD COUNT 10.2 TH/MM3 (4.0-11.0)
[2017-07-20 19:44] LABS: PROTHROMBIN TIME - PATIENT 10.2 SEC (9.8-11.6)
[2017-07-20 19:53] LABS: ALBUMIN 3.8 GM/DL (3.4-5.0); ALT (GPT) 25 U/L (12-78); AST (GOT) 15 U/L (15-37); BICARBONATE 21.2 MEQ/L (21.0-32.0); BLOOD UREA NITROGEN 43 MG/DL (7-18); CALCIUM 9.9 MG/DL (8.5-10.1); CHLORIDE 90 MEQ/L (98-107); CREATININE 2.35 MG/DL (0.60-1.30); GLOMERULAR FILTRATION RATE 28 ML/MIN (>89); SODIUM (NA) 125 MEQ/L (136-145)
--- NOTE | 2017-07-20 20:00 | RADRPT ---
EXAM DATE/TIME: 07/20/2017 19:39 [facility] COMPARISON: CT ABDOMEN & PELVIS W/O CONTRAST, October 06, 2015, 22:43. INDICATIONS : Right lower quadrant pain. ORAL CONTRAST: No oral contrast ingested. RADIATION DOSE: 16.65 CTDIvol (mGy) MEDICAL HISTORY : Stroke. Cardiovascular disease Carcinoma, prostate.Renal stones. SURGICAL HISTORY : Prostatectomy. Cholecystectomy. ENCOUNTER: Initial ACUITY: 1 day PAIN SCALE: 5/10 LOCATION: Right lower quadrant TECHNIQUE: Volumetric scanning of the abdomen and pelvis was performed. Using automated exposure control and ad justment of the mA and/or kV according to patient size, radiation dose was kept as low as reasonably achievable to obtain optimal diagnostic quality images. DICOM format image data is available electro nically for review and comparison. FINDINGS: LOWER LUNGS: The visualized lower lungs are clear. LIVER: Homogeneous density without lesion. There is no dilation of the biliary tree. Previous cholecystecto my. SPLEEN: Normal size without lesion. PANCREAS: Within normal limits. KIDNEYS: Normal in size and shape. There is no mass, stone, or hydronephrosis. ADRENAL GLANDS: Within normal limits. VASCULAR: There is no aortic aneurysm. BOWEL/MESENTERY: There is diverticulosis of the left side of the colon. Mild inflammatory changes are seen of the mid to distal sigmoid colon in the central pelvic cavity. No abscess, perforation or obstruction demonstr ated. The rest of the gastrointestinal tract has a normal noncontrast appearance. The appendix is wel l-visualized and normal. ABDOMINAL WALL: Within normal limits. RETROPERITONEUM: There is no lymphadenopathy. BLADDER: No wall thickening or mass. REPRODUCTIVE: Within normal limits. INGUINAL: There is no lymphadenopathy or hernia. MUSCULOSKELETAL: No acute bony abnormality demonstrated. Patient has bilateral bipolar hip arthroplasties with associa royer metallic streak artifact. CONCLUSION: 1. Mild, uncomplicated acute diverticulitis of the mid to distal sigmoid colon. 2. Normal appendix. Diego Arceo MD on July 20, 2017 at 19:55 Board Certified Radiologist. This report was verified electronically.
[2017-07-20] MEDS ORDERED: CIPROFLOXACIN 400 MG PREMIX 200 ML IV ONE (20:15)
[2017-07-20] MEDS ORDERED: metroNIDAZOLE 500 MG INJ 100 ML IV ONE (20:15)
[2017-07-20 20:22] LABS: ALKALINE PHOSPHATASE 124 U/L (45-117); TOTAL BILIRUBIN ADULT 0.8 MG/DL (0.2-1.0)
[2017-07-20 20:25] LABS: GLUCOSE,RANDOM 640 MG/DL (74-106)
[2017-07-20 21:13] VITALS: BP 101/69; PULSE 100; RESP 17; TEMP 98.4; O2SAT 95
[2017-07-20] MEDS ORDERED: SODIUM CHLOR 0.9% 1000 ML INJ 1,000 ML IV ONE (21:15)
[2017-07-20] MEDS ORDERED: MORPHINE SULFATE 2 MG/ML SYRINGE IV PUSH ONE (21:15)
[2017-07-20] MEDS ORDERED: ACETAMINOPHEN 325 MG TAB PO PRN (22:00)
[2017-07-20] MEDS ORDERED: ONDANSETRON HCL 4 MG/2 ML VIAL IVP PRN (22:00)
[2017-07-20] MEDS ORDERED: SENNOSIDES 8.6 MG TAB PO PRN (22:00)
[2017-07-20] MEDS ORDERED: BISACODYL 10 MG SUPP RECTAL PRN (22:00)
[2017-07-20] MEDS ORDERED: ZOLPIDEM TARTRATE 10 MG TAB PO PRN (22:00)
[2017-07-20] MEDS ORDERED: GLUCAGON 1 MG/ML VIAL OTHER PRN (22:00)
[2017-07-20] MEDS ORDERED: MAGNESIUM HYDROXIDE SUSP 30 ML CUP PO PRN (22:00)
[2017-07-20] MEDS ORDERED: NALOXONE HCL 0.4 MG/ML AMP IV PUSH PRN (22:00)
[2017-07-20] MEDS ORDERED: LACTULOSE SYRUP 20 GM/30 ML CUP PO PRN (22:00)
[2017-07-20] MEDS ORDERED: DEXTROSE 50% IN WATER 50 ML VIAL(D50) IV PUSH PRN (22:00)
[2017-07-20] MEDS ORDERED: SODIUM CHLORIDE 0.9% FLUSH 10 ML FLUSH IV FLUSH PRN (22:00)
--- NOTE | 2017-07-20 22:08 | HHI.HP ---
HPI Service [facility] Primary Care Physician Jai Tafoya MD Admission Diagnosis acute kidney injury, acute diverticulitis, hyperglycemia Diagnoses: Travel History International Travel<30 Days: No Contact w/Intl Traveler <30 Da: No Traveled to Known Affected Are: No History of Present Illness 66-year-old male with a past medical history significant for coronary disease, chronic kidney disease, hypertension, vertigo and diabetes mellitus presents to the emergency department for evaluation of abdominal pain. The patient reports that he has been having nausea with dry heaves for approximately 1 week. He reports decreased p.o. intake secondary to this. He awoke this morning with right lower quadrant abdominal pain that he felt was concerning for appendicitis. He denies any chest pain or shortness of breath. No diarrhea. No emesis. No fatigue/weakness. No lateralizing signs/symptoms. No fevers/ chills. Review of Systems Except as stated in HPI: all other systems reviewed are Neg Past Family Social History Past Medical History Coronary disease Chronic kidney disease Hypertension Vertigo Diabetes mellitus Past Surgical History Bilateral hip replacement Left knee replacement Reported Medications Reported Meds & Active Scripts Active Reported Triamcinolone Topical 0.025 % Oint 1 Applic TOPICAL BID [place] (Hydrocodone-Acetaminophen) 10-325 Mg Tab 1 Tab PO TID PRN Clonazepam 0.5 Mg Tab 0.5 Mg PO TID Hydrochlorothiazide 12.5 Mg Tab 12.5 Mg PO DAILY Lantus Inj (Insulin Glargine) 1,000 Unit/10 Ml Vial 10 Units SQ HS Novolog Flexpen Inj (Insulin Aspart) 300 Unit/3 Ml Pen 1 Units SQ Aspirin Low Dose (Aspirin) 81 Mg Chew 162 Mg CHEW DAILY Ambien (Zolpidem Tartrate) 10 Mg Tab 10 Mg PO HS PRN Vitamin D3 (Cholecalciferol) 1,000 Unit Cap 1,000 Units PO DAILY Fluticasone Nasal [place] 50 Mcg/Act Naspr 50 Mcg EACH NARE BID 50 mcg/spray Zanaflex (Tizanidine HCl) 4 Mg Cap 4 Mg PO TID PRN [place]-3 Fish Oil/Vitamin (Fish Oil-Cholecalciferol) 1,000-1,000 Mg Cap 1 Cap PO BID Ondansetron (Ondansetron HCl) 8 Mg Tab 8 Mg PO TID PRN Atorvastatin (Atorvastatin Calcium) 40 Mg Tab 40 Mg PO HS Plavix (Clopidogrel Bisulfate) 75 Mg Tab 75 Mg PO DAILY Restart when okay by orthopedic surgery Amlodipine (Amlodipine Besylate) 10 Mg Tab 10 Mg PO DAILY Protonix (Pantoprazole Sodium) 40 Mg Tab 40 Mg PO DAILY Diovan (Valsartan) 160 Mg Tab 160 Mg PO BID Allopurinol 300 Mg Tab 300 Mg PO DAILY Allergies: Coded Allergies: Iodinated Contrast- Oral and IV Dye (Verified Allergy, Severe, 07/20/17) NSAIDS (Non-Steroidal Anti-Inflamma (Verified Allergy, Severe, 07/20/17) diatrizoate meglumine (Unverified Allergy, Severe, "ANAPHYLAXIS", 07/20/17) diclofenac (Unverified Allergy, Severe, ACUTE RENAL FAILURE, 07/20/17) etodolac (Unverified Allergy, Severe, ACUTE RENAL FAILURE, 07/20/17) flurbiprofen (Unverified Allergy, Severe, ACUTE RENAL FAILURE, 07/20/17) gadobenic acid (Unverified Allergy, Severe, "ANAPHYLAXIS", 07/20/17) gadodiamide (Unverified Allergy, Severe, "ANAPHYLAXIS", 07/20/17) gadoteridol (Unverified Allergy, Severe, "ANAPHYLAXIS", 07/20/17) ibuprofen (Unverified Allergy, Severe, ACUTE RENAL FAILURE, 07/20/17) NO NSAIDS indomethacin (Unverified Allergy, Severe, ACUTE RENAL FAILURE, 07/20/17) iodixanol (Unverified Allergy, Severe, "ANAPHYLAXIS", 07/20/17) iohexol (Unverified Allergy, Severe, "ANAPHYLAXIS", 07/20/17) ketoprofen (Unverified Allergy, Severe, ACUTE RENAL FAILURE, 07/20/17) ketorolac (Unverified Allergy, Severe, ACUTE RENAL FAILURE, 07/20/17) naproxen (Unverified Allergy, Severe, ACUTE RENAL FAILURE, 07/20/17) oxaprozin (Unverified Allergy, Severe, ACUTE RENAL FAILURE, 07/20/17) promethazine (Unverified Allergy, Severe, ALTERED MENTAL STATUS, 07/20/17) ALLERGIC TO IV ONLY. SEVERE ANXIETY bee venom protein (honey bee) (Unverified Allergy, Mild, ITCHING/SWELLING , 07/20/17) *MDRO Multi-Drug Resistant Organism (Unverified Allergy, Unknown, 07/20/17) Family History Mother with Alzheimer's disease and diabetes mellitus. Father with coronary artery disease. Social History Quit tobacco 2.5 years ago. Rare alcohol. Denies illicit drugs. Physical Exam Vital Signs Vital Signs Date Time Temp Pulse Resp B/P (MAP) Pulse Ox O2 Delivery O2 Flow Rate FiO2 07/20/17 21:13 98.4 100 17 101/69 (80) 95 Nasal Cannula 2.00 07/20/17 19:13 105 20 112/66 (81) 92 Room Air 07/20/17 17:56 110 17 107/65 (79) 95 Room Air 07/20/17 17:44 122 22 87/54 (65) 95 Physical Exam GENERAL: male sitting up in bed SKIN: No rashes, ecchymoses or lesions. Cool and dry. HEAD: Atraumatic. Normocephalic. No temporal or scalp tenderness. EYES: Pupils equal round and reactive. Extraocular motions intact. No scleral icterus. No injection or drainage. ENT: Nose without bleeding, purulent drainage or septal hematoma. Throat without erythema, tonsillar hypertrophy or exudate. Uvula midline. Airway patent. NECK: Trachea midline. No JVD or lymphadenopathy. Supple, nontender, no meningeal signs. CARDIOVASCULAR: Regular rate and rhythm without murmurs, gallops, or rubs. RESPIRATORY: Clear to auscultation. Breath sounds equal bilaterally. No wheezes , rales, or rhonchi. GASTROINTESTINAL: Abdomen soft, diffusely tender to palpation worse in the right lower quadrant, nondistended. No hepato-splenomegaly, or palpable masses. No guarding. MUSCULOSKELETAL: Extremities without clubbing, cyanosis, or edema. No joint tenderness, effusion, or edema noted. No calf tenderness. NEUROLOGICAL: Awake and alert. Cranial nerves II through XII intact. Motor and sensory grossly within normal limits. Normal speech. Laboratory Laboratory Tests Test 07/20/17 18:55 07/20/17 19:03 Blood Urea Nitrogen 43 Creatinine 2.35 Random Glucose 640 Total Protein 8.0 Albumin 3.8 Calcium Level 9.9 Alkaline Phosphatase 124 Aspartate Amino Transf (AST/SGOT) 15 Alanine Aminotransferase (ALT/SGPT) 25 Total Bilirubin 0.8 Sodium Level 125 Potassium Level 4.9 Chloride Level 90 Carbon Dioxide Level 21.2 Anion Gap 14 Estimat Glomerular Filtration Rate 28 C-Reactive Protein 1.60 Lipase 157 White Blood Count 10.2 Red Blood Count 5.48 Hemoglobin 15.6 Hematocrit 47.8 Mean Corpuscular Volume 87.1 Mean Corpuscular Hemoglobin 28.4 Mean Corpuscular Hemoglobin Concent 32.6 Red Cell Distribution Width 14.7 Platelet Count 301 Mean Platelet Volume 8.5 Neutrophils (%) (Auto) 78.0 Lymphocytes (%) (Auto) 13.3 Monocytes (%) (Auto) 6.9 Eosinophils (%) (Auto) 1.1 Basophils (%) (Auto) 0.7 Neutrophils # (Auto) 8.0 Lymphocytes # (Auto) 1.4 Monocytes # (Auto) 0.7 Eosinophils # (Auto) 0.1 Basophils # (Auto) 0.1 CBC Comment DIFF FINAL Differential Comment Prothrombin Time 10.2 Prothromb Time International Ratio 1.0 Activated Partial Thromboplast Time 24.1 Lactic Acid Level 2.0 Result Diagram: 07/20/17 1903 07/20/17 1855 Caprini VTE Risk Assessment Caprini VTE Risk Assessment: Mod/High Risk (score >= 2) Caprini Risk Assessment Model Point Value = 1 Point Value = 2 Point Value = 3 Point Value = 5 Age 41-60 Minor surgery BMI > 25 kg/m2 Swollen legs Varicose veins or History of unexplained or recurrent spontaneous Oral contraceptives or hormone replacement Sepsis (< 1 month) Serious lung disease, including pneumonia (< 1 month) Abnormal pulmonary function Acute myocardial infarction Congestive heart failure (< 1 month) History of inflammatory bowel disease Medical patient at bed rest Age 61-74 Arthroscopic surgery Major open surgery (> 45 min) Laparoscopic surgery (> 45 min) Malignancy Confined to bed (> 72 hours) Immobilizing plaster cast Central venous access Age >= 75 History of VTE Family history of VTE Factor V Leiden Prothrombin [id number] Lupus anticoagulant Anticardiolipin antibodies Elevated serum homocysteine Heparin-induced thrombocytopenia Other congenital or acquired thrombophilia Stroke (< 1 month) Elective arthroplasty Hip, pelvis, or leg fracture Acute spinal cord injury (< 1 month) Prophylaxis Regimen Total Risk Factor Score Risk Level Prophylaxis Regimen 0-1 Low Early ambulation 2 Moderate Order ONE of the following: *Sequential Compression Device (SCD) *Heparin 5000 units SQ BID 3-4 Higher Order ONE of the following medications: *Heparin 5000 units SQ TID *Enoxaparin/Lovenox 40 mg SQ daily (WT < 150 kg, CrCl > 30 mL/min) *Enoxaparin/Lovenox 30 mg SQ daily (WT < 150 kg, CrCl > 10-29 mL/min) *Enoxaparin/Lovenox 30 mg SQ BID (WT < 150 kg, CrCl > 30 mL/min) AND/OR *Sequential Compression Device (SCD) 5 or more Highest Order ONE of the following medications: *Heparin 5000 units SQ TID (Preferred with Epidurals) *Enoxaparin/Lovenox 40 mg SQ daily (WT < 150 kg, CrCl > 30 mL/min) *Enoxaparin/Lovenox 30 mg SQ daily (WT < 150 kg, CrCl > 10-29 mL/min) *Enoxaparin/Lovenox 30 mg SQ BID (WT < 150 kg, CrCl > 30 mL/min) AND *Sequential Compression Device (SCD) Assessment and Plan Assessment and Plan Assessment/plan: 1. Diverticulitis CT of the abdomen/pelvis shows mild, uncomplicated acute diverticulitis of the distal sigmoid colon Cipro/Flagyl 2. Acute on chronic renal insufficiency BUN/creatinine 43/2.35, baseline 1.6 Patient reports taking Motrin yesterday, decreased p.o. intake 1 week IV fluid hydration Monitor renal function Consider renal ultrasound and nephrology consult if kidney function does not return to baseline 3. Diabetes mellitus/hyperglycemia Blood glucose 640 on arrival to the emergency department Patient reports compliance with his insulin Status post insulin in the emergency department Continue home Lantus Sliding-scale insulin Monitor blood glucose 4. Coronary artery disease Continue aspirin/Plavix 5. Hypertension Continue home medications FEN Heart healthy diabetic diet NS at 125 cc/hour Electrolytes: Monitor and replete as needed Heparin Physician Certification 2 Midnight Certification Type: Admission for Inpatient Services Order for Inpatient Services The services are ordered in accordance with Medicare regulations or non- Medicare payer requirements, as applicable. In the case of services not specified as inpatient-only, they are appropriately provided as inpatient services in accordance with the 2-midnight benchmark. Estimated LOS (days): 2 2 days is the estimated time the patient will need to remain in the hospital, assuming treatment plan goals are met and no additional complications. Post-Hospital Plan: Not yet determined Anahi Carson MD Jul 20, 2017 22:08
[2017-07-20] MEDS: SODIUM CHLOR 0.9% 1000 ML INJ 1,000 ML IV SCH (22:22)
--- NOTE | 2017-07-20 22:55 | RADRPT ---
EXAM DATE/TIME: 07/20/2017 22:35 [facility] COMPARISON: No previous studies available for comparison. INDICATIONS : Patient fell 1 week ago and complains of pain and swelling near base of 1st metacarpal, left hand. MEDICAL HISTORY : None. SURGICAL HISTORY : None. ENCOUNTER: Initial ACUITY: 1 day PAIN SCORE: 3/10 LOCATION: Left Hand, base of 1st metacarpal FINDINGS: No fracture or subluxation demonstrated. There is severe osteoarthritis of the first carpometacarpal joint. Moderate to severe radiocarpal and triscaphe osteoarthritis also noted. There is moderate intr acarpal osteoarthritis. CONCLUSION: Degenerative changes as above. No fracture or subluxation demonstrated. Diego Arceo MD on July 20, 2017 at 22:51 Board Certified Radiologist. This report was verified electronically.
[2017-07-20 23:39] LABS: BILIRUBIN, URINE NEG (NEG); BLOOD, URINE NEG (NEG); GLUCOSE,URINE 1000 mg/dL (NEG); KETONE, URINE NEG (NEG); MUCUS URINE FEW /lpf (OCC); NITRITE,URINE NEG (NEG); URINE COLOR YELLOW (YELLW/STRAW); URINE LEUKOCYTE ESTERASE NEG (NEG)
[2017-07-21] VITALS (9 sets, daily range): BP systolic 84–112; BP diastolic 55–74; PULSE 77–92; RESP 16–20; TEMP 97.8–98.5; O2SAT 95–98
[2017-07-21] MEDS: HEPARIN SODIUM - SQ 10,000 UNITS/ML VIAL SQ SCH ×4 (00:24→21:34)
[2017-07-21] MEDS ORDERED: INSULIN DETEMIR 100 UNITS/ML VIAL SQ ONE (00:30)
[2017-07-21] MEDS ORDERED: MORPHINE SULFATE 2 MG/ML SYRINGE IV PUSH PRN (02:30)
[2017-07-21] MEDS: metroNIDAZOLE 500 MG INJ 100 ML IV SCH ×3 (03:20→19:29)
[2017-07-21] MEDS: MORPHINE SULFATE 4 MG/ML INJ IV PUSH PRN ×2 (03:20→09:20)
[2017-07-21 04:59] LABS: AUTOMATED NEUTROPHIL # 5.6 TH/MM3 (1.8-7.7); BASOPHIL % 0.6 % (0.0-2.0); EOSINOPHIL # 0.1 TH/MM3 (0-0.4); EOSINOPHIL % 1.1 % (0.0-4.0); HEMATOCRIT 42.7 % (39.0-51.0); HEMOGLOBIN 14.3 GM/DL (13.0-17.0); LYMPH % 22.4 % (9.0-44.0); LYMPHOCYTE # 1.9 TH/MM3 (1.0-4.8); MEAN CELL VOLUME 86.2 FL (80.0-100.0); MEAN CORPUSCULAR HEMOGLOBIN 28.9 PG (27.0-34.0); MEAN CORPUSCULAR HGB CONC 33.5 % (32.0-36.0); MEAN PLATELET VOLUME 8.1 FL (7.0-11.0); MONO % 9.1 % (0.0-8.0); MONOCYTE # 0.8 TH/MM3 (0-0.9); NEUT % 66.8 % (16.0-70.0); PLATELET COUNT 229 TH/MM3 (150-450); RED BLOOD COUNT 4.95 MIL/MM3 (4.50-5.90); RED CELL DISTRIBUTION WIDTH 14.6 % (11.6-17.2); WHITE BLOOD COUNT 8.4 TH/MM3 (4.0-11.0)
[2017-07-21 05:24] LABS: BICARBONATE 24.9 MEQ/L (21.0-32.0); CALCIUM 8.9 MG/DL (8.5-10.1); CREATININE 1.9 MG/DL (0.60-1.30)
[2017-07-21] MEDS: SODIUM CHLOR 0.9% 1000 ML INJ 1,000 ML IV SCH ×3 (05:47→21:55)
[2017-07-21] MEDS: INSULIN ASPART SUPPLEMENTAL SCALE SQ SCH ×4 (08:00→21:36)
[2017-07-21] MEDS: PNEUMOCOCCAL POLYVALENT INJ 25 MCG/0.5 ML SYR IM ONE ×2 (09:00→09:19)
[2017-07-21] MEDS: HYDROCHLOROTHIAZIDE 12.5 MG CAP PO SCH ×2 (09:00→09:17)
[2017-07-21] MEDS ORDERED: CLOPIDOGREL 75 MG TAB PO SCH (09:00)
[2017-07-21] MEDS ORDERED: VALSARTAN 160 MG TAB PO SCH (09:00)
[2017-07-21] MEDS: DOCUSATE SODIUM 50 MG/SENNA 8.6 MG TAB PO SCH ×2 (09:16→21:34)
[2017-07-21] MEDS: CIPROFLOXACIN 400 MG PREMIX 200 ML IV SCH ×2 (09:16→21:06)
[2017-07-21] MEDS: clonazePAM 0.5 MG TAB PO SCH ×4 (09:16→17:57)
[2017-07-21] MEDS: PANTOPRAZOLE SOD 40 MG DELAYED RELEASE TAB PO SCH (09:16)
[2017-07-21] MEDS: SODIUM CHLORIDE 0.9% FLUSH 10 ML FLUSH IV FLUSH SCH ×2 (09:17→21:34)
[2017-07-21] MEDS: ASPIRIN 81 MG CHEW TAB CHEW SCH (09:17)
[2017-07-21] MEDS ORDERED: SODIUM CHLOR 0.9% 1000 ML INJ 1,000 ML IV ONE (14:45)
--- NOTE | 2017-07-21 16:30 | EKG ---
Date Performed: 07/20/2017 Time Performed: 19:51:15 PTAGE: 66 years EKG: SINUS TACHYCARDIA ARM LEADS REVERSED ABNORMAL RHYTHM ECG PREVIOUS TRACING : 04/07/2016 12.39 Since the previous tracing, no significant change noted DOCTOR: Kamar Johnson Interpretating Date/Time 07/21/2017 16:26:54
[2017-07-21] MEDS ORDERED: INSULIN DETEMIR 100 UNITS/ML VIAL SQ SCH (21:00)
[2017-07-21] MEDS ORDERED: ATORVASTATIN 40 MG TAB PO SCH (21:00)
[2017-07-21] MEDS: INSULIN DETEMIR 100 UNITS/ML VIAL SQ SCH (21:35)
--- NOTE | 2017-07-21 23:57 | HHI.PR ---
Subjective Remarks Hypptension this morning. Patient says he is feeling well however. We'll discontinue home blood pressure meds for now. Discussed with nursing. Objective Vital Signs Date Time Temp Pulse Resp B/P (MAP) Pulse Ox O2 Delivery O2 Flow Rate FiO2 07/21/17 23:38 97.8 81 20 108/70 (83) 07/21/17 23:38 97 Room Air 07/21/17 20:00 97.8 78 16 97/65 (76) 96 07/21/17 19:00 95 Room Air 07/21/17 17:58 97/59 (72) 07/21/17 16:12 98.2 85 20 90/57 (68) 95 07/21/17 15:00 77 07/21/17 12:00 97.9 87 20 84/55 (65) 97 07/21/17 08:00 98.1 92 17 112/64 (80) 97 07/21/17 08:00 92 07/21/17 08:00 97 Room Air 07/21/17 04:00 97.8 87 16 108/74 (85) 98 Automatic Cuff 07/21/17 00:27 98.5 90 20 100/56 (71) 97 Nasal Cannula 2.00 I/O 07/21/17 07/21/17 07/21/17 07/22/17 07/22/17 07/22/17 07:00 15:00 23:00 07:00 15:00 23:00 Intake Total 1580 ml 1500 ml 2555 ml Output Total 1325 ml 2725 ml Balance 255 ml 1500 ml -170 ml Intake Oral 480 ml 200 ml 780 ml IV Total 1100 ml 1300 ml 1775 ml Output Urine Total 1325 ml 2725 ml # Bowel Movements 0 1 Result Diagram: 07/21/17 0351 07/21/17 0351 Objective Remarks GENERAL: patient sitting up in bed. Appears comfortable. Alert and oriented 3. SKIN: Warm and dry. HEAD: Normocephalic. EYES: No scleral icterus. No injection or drainage. NECK: Supple, trachea midline. No JVD. CARDIOVASCULAR: Regular rate and rhythm without murmurs, gallops, or rubs. RESPIRATORY: Breath sounds equal bilaterally. No accessory muscle use. GASTROINTESTINAL: Abdomen soft, non-tender, nondistended. MUSCULOSKELETAL: No cyanosis, or edema. BACK: Nontender without obvious deformity. No CVA tenderness. A/P Assessment and Plan Assessment/plan: 1. Diverticulitis CT of the abdomen/pelvis shows mild, uncomplicated acute diverticulitis of the distal sigmoid colon Cipro/Flagyl = Symptoms improving. Continue antibiotics. 2. Acute on chronic renal insufficiency BUN/creatinine 43/2.35, baseline 1.6 Patient reports taking Motrin yesterday, decreased p.o. intake 1 week IV fluid hydration Monitor renal function Consider renal ultrasound and nephrology consult if kidney function does not return to baseline\ = Creatinine improving. Continue to monitor. 3. Diabetes mellitus/hyperglycemia Blood glucose 640 on arrival to the emergency department Patient reports compliance with his insulin Status post insulin in the emergency department Continue home Lantus Sliding-scale insulin Monitor blood glucose = Glucose elevated in the 300s. Likely in part elevated secondary to infection. Adjust insulin. Continue to monitor. 4. Coronary artery disease Continue aspirin/Plavix 5. Hypertension Continue home medications = 07/21. Hypotension this morning with systolic in the 80s. Likely exacerbated by blood pressure meds. FEN Heart healthy diabetic diet NS at 150 cc/hour Electrolytes: Monitor and replete as needed Heparin Marcelino Love MD Jul 21, 2017 23:57
[2017-07-22 04:00] VITALS: BP 109/69; PULSE 80; RESP 18; TEMP 98.3; O2SAT 95
[2017-07-22] MEDS: SODIUM CHLOR 0.9% 1000 ML INJ 1,000 ML IV SCH ×2 (04:39→11:47)
[2017-07-22] MEDS: metroNIDAZOLE 500 MG INJ 100 ML IV SCH ×2 (04:39→11:54)
[2017-07-22] MEDS: HEPARIN SODIUM - SQ 10,000 UNITS/ML VIAL SQ SCH ×2 (05:58→14:20)
[2017-07-22 07:12] LABS: AUTOMATED NEUTROPHIL # 3.6 TH/MM3 (1.8-7.7); BASOPHIL # 0.1 TH/MM3 (0-0.2); BASOPHIL % 1.2 % (0.0-2.0); EOSINOPHIL # 0.3 TH/MM3 (0-0.4); EOSINOPHIL % 4.4 % (0.0-4.0); HEMATOCRIT 40.2 % (39.0-51.0); HEMOGLOBIN 13.3 GM/DL (13.0-17.0); LYMPH % 24.6 % (9.0-44.0); LYMPHOCYTE # 1.4 TH/MM3 (1.0-4.8); MEAN CORPUSCULAR HEMOGLOBIN 28.8 PG (27.0-34.0); MEAN PLATELET VOLUME 8.2 FL (7.0-11.0); MONOCYTE # 0.5 TH/MM3 (0-0.9); NEUT % 61.8 % (16.0-70.0); PLATELET COUNT 192 TH/MM3 (150-450); RED BLOOD COUNT 4.62 MIL/MM3 (4.50-5.90); RED CELL DISTRIBUTION WIDTH 14.7 % (11.6-17.2); WHITE BLOOD COUNT 5.8 TH/MM3 (4.0-11.0)
[2017-07-22 08:00] VITALS: BP 118/85; PULSE 80; RESP 16; TEMP 97.8; O2SAT 96
[2017-07-22 08:04] LABS: BICARBONATE 23.5 MEQ/L (21.0-32.0); CALCIUM 9.1 MG/DL (8.5-10.1); CREATININE 1.39 MG/DL (0.60-1.30)
[2017-07-22] MEDS: CIPROFLOXACIN 400 MG PREMIX 200 ML IV SCH (08:51)
[2017-07-22] MEDS: clonazePAM 0.5 MG TAB PO SCH ×3 (08:52→17:04)
[2017-07-22] MEDS: INSULIN ASPART SUPPLEMENTAL SCALE SQ SCH ×3 (08:52→17:05)
[2017-07-22] MEDS: PANTOPRAZOLE SOD 40 MG DELAYED RELEASE TAB PO SCH (08:52)
[2017-07-22] MEDS: DOCUSATE SODIUM 50 MG/SENNA 8.6 MG TAB PO SCH (08:52)
[2017-07-22] MEDS: SODIUM CHLORIDE 0.9% FLUSH 10 ML FLUSH IV FLUSH SCH (08:53)
[2017-07-22] MEDS: ASPIRIN 81 MG CHEW TAB CHEW SCH (08:53)
[2017-07-22] MEDS: INSULIN DETEMIR 100 UNITS/ML VIAL SQ SCH (08:54)
[2017-07-22 12:00] VITALS: BP 130/77; PULSE 79; RESP 18; TEMP 97.3; O2SAT 96
--- NOTE | 2017-07-22 12:44 | HHI.PR ---
Subjective Remarks F/U Diverticulitis. No pain tolerating diet. BP improved dw RN Objective Vitals Vital Signs Date Time Temp Pulse Resp B/P (MAP) Pulse Ox O2 Delivery O2 Flow Rate FiO2 07/22/17 12:00 97.3 79 18 130/77 (94) 96 07/22/17 08:00 97.8 80 16 118/85 (96) 96 07/22/17 08:00 Room Air 2.00 07/22/17 04:00 Room Air 07/22/17 04:00 98.3 80 18 109/69 (82) 95 07/21/17 23:38 97.8 81 20 108/70 (83) 07/21/17 23:38 97 Room Air 07/21/17 20:00 97.8 78 16 97/65 (76) 96 07/21/17 19:00 95 Room Air 07/21/17 17:58 97/59 (72) 07/21/17 16:12 98.2 85 20 90/57 (68) 95 07/21/17 15:00 77 I/O 07/21/17 07/21/17 07/21/17 07/22/17 07/22/17 07/22/17 07:00 15:00 23:00 07:00 15:00 23:00 Intake Total 1580 ml 1500 ml 2555 ml 1607 ml Output Total 1325 ml 2725 ml 1250 ml Balance 255 ml 1500 ml -170 ml 357 ml Intake Oral 480 ml 200 ml 780 ml 720 ml IV Total 1100 ml 1300 ml 1775 ml 887 ml Output Urine Total 1325 ml 2725 ml 1250 ml # Bowel Movements 0 1 0 Result Diagram: 07/22/17 0600 07/22/17 0600 Imaging Last Impressions Abdomen/Pelvis CT 07/20/17 1826 Signed Impressions: Service Date/Time: Thursday, July 20, 2017 19:39 - CONCLUSION: 1. Mild, uncomplicated acute diverticulitis of the mid to distal sigmoid colon. 2. Normal appendix. Diego Arceo MD Hand X-Ray 07/20/17 0000 Signed Impressions: Service Date/Time: Thursday, July 20, 2017 22:35 - CONCLUSION: Degenerative changes as above. No fracture or subluxation demonstrated. Diego Arceo MD Objective Remarks GENERAL: Appears comfortable. Alert and oriented 3. SKIN: Warm and dry. HEAD: Normocephalic. EYES: No scleral icterus. No injection or drainage. NECK: Supple, trachea midline. No JVD. CARDIOVASCULAR: Regular rate and rhythm without murmurs, gallops, or rubs. RESPIRATORY: Breath sounds equal bilaterally. No accessory muscle use. GASTROINTESTINAL: Abdomen soft, non-tender, nondistended. MUSCULOSKELETAL: No cyanosis, or edema. BACK: Nontender without obvious deformity. No CVA tenderness. Procedures none A/P Problem List: (1) Diverticulitis ICD Code: K57.92 - Diverticulitis of intestine, part unspecified, without perforation or abscess without bleeding Status: Acute Assessment and Plan 1. Diverticulitis. Improved tolerating diet no abd pain. Switch to po Flagyl and cipro for total 2 weeks possible SE dw pt. Avoid constipation, seeds, corn and nuts. Negative cscope 2 years ago 2. Acute on KD 3. Resolving almost baseline dc IVF avoid nephrotoxins hold HCTZ and ARB 3. Diabetes mellitus/hyperglycemia. Improved hyperglycemia. Continue home Lantus, Sliding-scale insulin. Monitor blood glucose 4. Coronary artery disease. Continue aspirin/Plavix needs to be on BB to f/u with PCP 5. Hypertension. Hypotension 2/2 dehydration and meds. Resolved. BP creeping restart Norvasc lower dose hold other meds for now pt to check BP at home Discharge Planning Discharge patient to home Condition on discharge: Improved Regular Diet as tolerated Ad Stormy activity no driving Rx written: Cipro, Flagyl and norvasc Follow-up with primary care physician Alessio Juarez MD Jul 22, 2017 12:44
--- NOTE | 2017-07-22 13:16 | PQ ---
Physician Query Response Document PATIENT: AJ JENSEN : 1950 ADMIT DATE: 07/20/2017 8:42 PM DISCH DATE: RESPONDING PROVIDER #: Roym QUERY TEXT: CDS Clarification Acute kidney failure POA in the setting of a patient with HTN and CKD with nurse epidemiologist 2.35 and GFR 28 on adm ission w decreased fluid intake and on motrin x 1 week for abdominal pain treated with IV fluid hydra tion and renal function monitoring. Other explanation of clinical findings. Unable to determine (no explanation for clinical findings). The medical record reflects the following clinical findings, treatment, and risk factors. * Clinical Indicators on admission Manager Appointment 2.35 and GFR 28 * Risk Factors HTN CKD decreased fluid intake and on motrin x 1 week * Treatment IV fluid hydration and renal function monitoring The patient's Clinical Indicators include: Please clarify and document your clinical opinion in the progress notes and discharge summary includi ng the definitive and/or presumptive diagnosis (suspected or probable), related to the above clinical findings. Please include clinical findings supporting your diagnosis. Thank you, Cesilia Vance CDS: Cesilia Vance Patient Unit: [id number] Room: [facility] Contact Number: RUPERTO/RN ext. [phone] Query created by: Cesilia Vance on 07/22/2017 1:09 PM RESPONSE TEXT: RONDA on CKD stage 3 Electronically signed by: Alessio Juarez MD 07/22/2017 1:12 PM
[2017-07-22] MEDS ORDERED: metroNIDAZOLE 500 MG TAB PO SCH (14:00)
[2017-07-22] MEDS ORDERED: CIPR-9 PO (16:42)
[2017-07-22] MEDS ORDERED: AMLO5 PO (16:42)
[2017-07-22] MEDS ORDERED: METR-1 PO (16:42)
--- NOTE | 2017-07-22 16:43 | HHI.DCPOC ---
Discharge Care Plan Diagnosis: (1) Acute kidney injury (2) Diverticulitis Your Health Problems Are: Difficulty with ADL Exercise Tolerance Goals to Promote Your Health * To prevent worsening of your condition and complications * To maintain your health at the optimal level Directions to Meet Your Goals Take your medications as prescribed Follow your dietary instruction Follow activity as directed Keep your appointments as scheduled Take your immunizations and boosters as scheduled If your symptoms worsen call your PCP, if no PCP go to Urgent Care Center or Emergency Room Smoking is Dangerous to Your Health. Avoid second hand smoke Call the 24-hour hour crisis hotline for domestic abuse at Alessio Juarez MD Jul 22, 2017 16:43
[2017-07-22] MEDS ORDERED: CIPROFLOXACIN 500 MG TAB PO SCH (21:00)
[2017-07-22] MEDS ORDERED: CLOPIDOGREL 75 MG TAB PO SCH (21:00)
[2017-07-23] MEDS ORDERED: amLODIPine BESYLATE 5 MG TAB PO SCH (09:00)
== END 2017-07-22 18:12 | disposition home or self-care (01) | DRG 392 ==
LOC: NEPE 17:15 → NEDA 20:42 → NEDH 07-21 00:42 → N03A 07-21 01:35 → N04B 07-21 22:45
PROVIDERS: ADMIT Internal Medicine; ATTEND Internal Medicine
DX: K57.32 Diverticulitis of large intestine without perforation or abscess without bleeding (principal); N17.9 Acute kidney failure, unspecified; E11.22 Type 2 diabetes mellitus with diabetic chronic kidney disease; E11.65 Type 2 diabetes mellitus with hyperglycemia; I12.9 Hypertensive chronic kidney disease with stage 1 through stage 4 chronic kidney disease, or unspecified chronic kidney disease; E86.0 Dehydration; I95.2 Hypotension due to drugs; E78.00 Pure hypercholesterolemia, unspecified; I25.10 Atherosclerotic heart disease of native coronary artery without angina pectoris; K21.9 Gastro-esophageal reflux disease without esophagitis; N18.3 Chronic kidney disease, stage 3 (moderate); H91.90 Unspecified hearing loss, unspecified ear; M19.90 Unspecified osteoarthritis, unspecified site; Z96.643 Presence of artificial hip joint, bilateral; Z96.652 Presence of left artificial knee joint; Z79.4 Long term (current) use of insulin; Z85.46 Personal history of malignant neoplasm of prostate; Z87.891 Personal history of nicotine dependence; Z82.49 Family history of ischemic heart disease and other diseases of the circulatory system; Z87.442 Personal history of urinary calculi; Z86.73 Personal history of transient ischemic attack (TIA), and cerebral infarction without residual deficits; Z79.02 Long term (current) use of antithrombotics/antiplatelets; Z79.82 Long term (current) use of aspirin
CPT/HCPCS: 73130; 74176; 80048; 80053; 81001; 82948; 83605; 83690; 85025; 85610; 85730; 86140; 90732; 93005; 96361; 96365; 96368; 96372; 96375; J0744; J1644; J1815; J2270; J2405; J7030; J7040